=== PATIENT | female | born 1965 | race Two or more races ===

== ENCOUNTER 2020-03-28 15:17 | Emergency (ER) | payer SELFPAY ==
[~2020-03-28] VITALS: Ht 162.6 cm; Wt 77.0 kg
[2020-03-28] MEDS ORDERED: SODIUM CHLORIDE 0.9% 1,000 ML IV ONE (15:39)
[2020-03-28 16:22] LABS: CHLORIDE 105 mEq/L (98-107)
[2020-03-28 16:23] LABS: BASOPHILS % 0.4 % (0.0-2.0); EOSINOPHILS % 1.8 % (0.0-5.0); HEMATOCRIT. 42.1 % (36.0-48.0); HEMOGLOBIN. 13.9 g/dL (12.0-16.0); MEAN CORPUSCULAR HEMOGLOBIN 29.1 pg (28.0-32.0); MEAN CORPUSCULAR VOLUME 88.2 fL (81.0-99.0); MEAN PLATELET VOLUME 9.6 fl (7.4-10.4); MONOCYTES % 7.9 % (2.0-8.0); NEUTROPHILS % 65.9 % (40.0-76.0); PLATELET 234 x1000/uL (130-400); RED BLOOD CELL COUNT 4.77 mill/uL (4.2-5.4); RED CELL DISTRIBUTION WIDTH 13.4 % (11.6-14.6)
[2020-03-28 16:26] LABS: PROTHROMBIN TIME 10.7 sec (9.6-11.0)
[2020-03-28 17:29] LABS: CLARITY URINE CLOUDY (CLEAR); COLOR URINE DARK YELLOW (YELLOW); KETONES URINE TRACE (NEGATIVE); LEUKOCYTE ESTERASE URINE 1+ (NEGATIVE); NITRITE URINE NEGATIVE (NEGATIVE); OCCULT BLOOD URINE NEGATIVE (NEGATIVE); PH URINE 6.5 (4.5-8.0); PROTEIN URINE TRACE (NEGATIVE); SPECIFIC GRAVITY URINE 1.027 (1.005-1.030)
[2020-03-28 17:41] VITALS: BP 138/73
== END 2020-03-28 17:35 | disposition home or self-care (01) ==
LOC: ER 15:17
DX: R42 Dizziness and giddiness (principal); R51 Headache
CPT/HCPCS: 36415; 71045; 80053; 81003; 85025; 85610; 93005; 96360; 99284; J7030